=== PATIENT | female | born 1990 | race Caucasian/White ===

== ENCOUNTER 2022-03-02 08:00 | Inpatient (IN) | payer OTHER ==
[2022-02-27 15:46] VITALS: BMI 23.1
[2022-03-04] MEDS ORDERED: ceFAZolin SODIUM 1 GM VIAL ONE ×2 (13:59→15:34)
[2022-03-04] MEDS ORDERED: SUCCINYLCHOLINE CHLORIDE 200 MG/10 ML SYRINGE ONE (14:55)
[2022-03-04] MEDS ORDERED: MIDAZOLAM HCL 2 MG/2 ML SINGLE DOSE VIAL ONE (14:56)
[2022-03-04] MEDS ORDERED: ceFAZolin SODIUM 1 GM VIAL IVPB ONE (15:30)
[2022-03-04] MEDS ORDERED: PROPOFOL 60 ML ONE ×2 (15:39→16:15)
[2022-03-04] MEDS ORDERED: ACETAMINOPHEN INJECTION 100 ML IVPB ONE (16:40)
[2022-03-04] MEDS ORDERED: PROPOFOL 40 ML ONE (16:55)
[2022-03-04] MEDS ORDERED: HYDROmorphone HCl 2 MG/ML VIAL ONE (19:18)
[2022-03-04] MEDS ORDERED: HYDROmorphone HCl 2 MG/ML VIAL IVPUSH ONE ×6 (19:20→19:55)
[2022-03-04] MEDS ORDERED: ONDANSETRON 4 MG/2 ML VIAL IVPUSH PRN (19:51)
[2022-03-04] MEDS ORDERED: HYDROmorphone HCL CARPU-JECT 2 MG/1 ML DISP.SYRIN IVPUSH ONE (19:52)
[2022-03-04] MEDS ORDERED: LACTATED RINGERS SOLUTION 1,000 ML IV SCH (20:00)
[2022-03-04] MEDS ORDERED: CYCLOBENZAPRINE HCL 10 MG TABLET (FP) PO ONE ×3 (20:00→20:44)
[2022-03-04] MEDS ORDERED: DOCUSATE SODIUM 100 MG CAPSULE (FP) PO PRN (20:19)
[2022-03-04] MEDS: SENNOSIDES/DOCUSATE COMBO (SENNA PLUS) TABLET (UD) PO SCH (21:28)
[2022-03-04] MEDS: ACETAMINOPHEN 325 MG TABLET (FP) PO SCH (21:28)
[2022-03-04] MEDS: CYCLOBENZAPRINE HCL 5 MG TABLET PO SCH (21:29)
[2022-03-05] MEDS: ACETAMINOPHEN 325 MG TABLET (FP) PO SCH ×6 (00:44→21:02)
[2022-03-05] MEDS: oxyCODONE HCL 5 MG TABLET PO PRN ×5 (00:47→21:08)
[2022-03-05] MEDS: LACTATED RINGERS SOLUTION 1,000 ML IV SCH (02:23)
[2022-03-05] MEDS: CYCLOBENZAPRINE HCL 5 MG TABLET PO SCH ×3 (05:54→21:02)
[2022-03-05] MEDS: SENNOSIDES/DOCUSATE COMBO (SENNA PLUS) TABLET (UD) PO SCH ×2 (10:59→21:03)
[2022-03-06] MEDS: ACETAMINOPHEN 325 MG TABLET (FP) PO SCH ×7 (00:33→23:49)
[2022-03-06] MEDS: oxyCODONE HCL 5 MG TABLET PO PRN ×4 (02:27→21:40)
[2022-03-06] MEDS: CYCLOBENZAPRINE HCL 5 MG TABLET PO SCH ×3 (05:08→21:36)
[2022-03-06] MEDS: SENNOSIDES/DOCUSATE COMBO (SENNA PLUS) TABLET (UD) PO SCH ×2 (09:13→21:36)
[2022-03-07] MEDS: ACETAMINOPHEN 325 MG TABLET (FP) PO SCH ×5 (04:30→20:48)
[2022-03-07] MEDS: CYCLOBENZAPRINE HCL 5 MG TABLET PO SCH ×3 (05:21→21:14)
[2022-03-07] MEDS: oxyCODONE HCL 5 MG TABLET PO PRN (05:41)
[2022-03-07] MEDS: LACTATED RINGERS SOLUTION 1,000 ML IV SCH ×3 (09:58→20:48)
[2022-03-07] MEDS: SENNOSIDES/DOCUSATE COMBO (SENNA PLUS) TABLET (UD) PO SCH ×2 (09:59→21:14)
[2022-03-07 11:35] LABS: BASO % 0.6 % (0-2.0); HEMATOCRIT 39.9 % (32.4-45.2); HEMOGLOBIN 13.7 GM/dL (10.7-15.3); LYMPH % 22.1 % (8-40); MCH 30.7 pg (25.7-33.7); MCHC 34.3 g/dl (32.0-36.0); MEAN CELL VOLUME 89.5 fl (80-96); MEAN PLT VOLUME 10.2 fl (7.5-11.1); MONO % 9.7 % (3.8-10.2); NEUT % 65.6 % (42.8-82.8); PLATELET COUNT 190 10^3/uL (134-434); RBC 4.46 M/mm3 (3.60-5.2); RDW 14.1 % (11.6-15.6); WHITE BLOOD COUNT 6.2 K/mm3 (4.0-10.0)
[2022-03-07 11:53] LABS: BLOOD UREA NITROGEN 10.4 mg/dL (7-18)
[2022-03-07 11:54] LABS: ALBUMIN 3.8 g/dl (3.4-5.0); MAGNESIUM 2.1 mg/dL (1.8-2.4)
[2022-03-07 11:58] LABS: BILIRUBIN,TOTAL 0.3 mg/dL (0.2-1); CREATININE 0.5 mg/dL (0.55-1.3); PHOSPHOROUS 3.7 mg/dL (2.5-4.9); TOT PROT 7.1 g/dl (6.4-8.2)
[2022-03-07] MEDS ORDERED: oxyCODONE HCL 5 MG TABLET PO ONE (22:07)
[2022-03-08] MEDS: ACETAMINOPHEN 325 MG TABLET (FP) PO SCH ×4 (00:20→12:33)
[2022-03-08] MEDS: CYCLOBENZAPRINE HCL 5 MG TABLET PO SCH ×2 (05:50→14:59)
[2022-03-08] MEDS: SENNOSIDES/DOCUSATE COMBO (SENNA PLUS) TABLET (UD) PO SCH (09:01)
[2022-03-08 15:40] VITALS: BP 110/44; PULSE 111; RESP 15; TEMP 98.7
== END 2022-03-08 17:04 | disposition home or self-care (01) | DRG 23 ==
LOC: J2C 03-04 05:29 → J8W 03-04 20:48
PROVIDERS: ADMIT Neurological Surgery; ATTEND Internal Medicine
PROC: 0RP10AZ Removal of Interbody Fusion Device from Cervical Vertebral Joint, Open Approach (ICD-10-PCS; 2022-03-04)
PROC: 01N10ZZ Release Cervical Nerve, Open Approach (ICD-10-PCS; 2022-03-04)
PROC: 0RT30ZZ Resection of Cervical Vertebral Disc, Open Approach (ICD-10-PCS; 2022-03-04)
PROC: 4A11X4G Monitoring of Peripheral Nervous Electrical Activity, Intraoperative, External Approach (ICD-10-PCS; 2022-03-04)
PROC: 0RG20A0 Fusion of 2 or more Cervical Vertebral Joints with Interbody Fusion Device, Anterior Approach, Anterior Column, Open Approach (ICD-10-PCS; principal; 2022-03-04 08:00)
DX: M54.12 Radiculopathy, cervical region (principal); G95.9 Disease of spinal cord, unspecified; G43.909 Migraine, unspecified, not intractable, without status migrainosus
CPT/HCPCS: 36415; 72040-TC; 76000-TC-FY; 80053; 83735; 84100; 85025; 86850; 86900; 86901; 94760; C1713; C1889